=== PATIENT | male | born 1990 | race Two or more races ===

== ENCOUNTER 2024-04-12 20:34 | Emergency (ER) | payer MEDICAID, OTHER ==
[~2024-04-12] VITALS: Ht 180.3 cm; Wt 106.0 kg
[2024-04-12 21:57] VITALS: BP 120/67; PULSE 96; RESP 15; TEMP 99.2; O2SAT 99
[2024-04-13] MEDS: TETANUS-DIPTH-ACEL PERTUSSIS 0.5ML SYR Tdap IM ONE (00:43)
[2024-04-13] MEDS: LIDOCAINE 1% HCL (LOCAL ANESTH.) INJ 20ML MDV ID ONE (00:43)
[2024-04-13] MEDS: HYDROcodone-ACET 5/325MG TAB PO ONE (00:44)
[2024-04-13] MEDS: NEOMYCIN-BACITRACIN-POLYM UNITDOSE PKG TOP OINT TOP ONE (00:44)
[2024-04-13] MEDS: cefTRIAXone SOD 1,000 MG VL IM ONE (00:45)
[2024-04-13] MEDS ORDERED: HYDR-4902 PO (01:40)
[2024-04-13] MEDS ORDERED: MUPI2OIN2 EX (01:40)
[2024-04-13] MEDS ORDERED: CEPH500C PO (01:40)
== END 2024-04-13 03:49 | disposition home or self-care (01) ==
LOC: ER 20:34
DX: S01.01XA Laceration without foreign body of scalp, initial encounter (principal); V86.59XA Driver of other special all-terrain or other off-road motor vehicle injured in nontraffic accident, initial encounter; Y93.89 Activity, other specified; Y92.89 Other specified places as the place of occurrence of the external cause; Y99.8 Other external cause status
CPT/HCPCS: 12004; 70450; 71250; 74176; 96372

== ENCOUNTER 2024-04-18 10:20 | Emergency (ER) | payer MEDICAID ==
[~2024-04-18] VITALS: Ht 180.3 cm; Wt 105.8 kg
[~2024-04-18 10:20] MED LIST: CEPH500C PO; HYDR-4902 PO; MUPI2OIN2 EX
[2024-04-18 11:19] VITALS: BP 107/57; PULSE 80; RESP 18; TEMP 97.9; O2SAT 99
[2024-04-18] MEDS ORDERED: METH-1182 PO (11:36)
[2024-04-18] MEDS ORDERED: IBUP-1456 PO (11:36)
== END 2024-04-18 11:53 | disposition home or self-care (01) ==
LOC: ER 10:20
DX: S29.011D Strain of muscle and tendon of front wall of thorax, subsequent encounter (principal); Z48.00 Encounter for change or removal of nonsurgical wound dressing; V86.95XD Unspecified occupant of 3- or 4- wheeled all-terrain vehicle (ATV) injured in nontraffic accident, subsequent encounter

== ENCOUNTER 2024-04-25 12:20 | Emergency (ER) | payer MEDICAID ==
[~2024-04-25] VITALS: Ht 180.3 cm; Wt 106.7 kg
[~2024-04-25 12:20] MED LIST changes: +IBUP-1456 PO; +METH-1182 PO
[2024-04-25 13:17] VITALS: BP 127/64; PULSE 70; RESP 15; TEMP 98.7; O2SAT 99
== END 2024-04-25 13:31 | disposition home or self-care (01) ==
LOC: ER 12:20
DX: S01.81XD Laceration without foreign body of other part of head, subsequent encounter (principal); Z48.00 Encounter for change or removal of nonsurgical wound dressing; Z79.899 Other long term (current) drug therapy; X58.XXXD Exposure to other specified factors, subsequent encounter

== ENCOUNTER 2024-10-29 18:32 | Emergency (ER) | payer MEDICAID ==
[~2024-10-29] VITALS: Ht 180.3 cm; Wt 107.6 kg
--- NOTE | 2024-10-29 19:05 | ED.PDOC ---
HPI Comments 33 year old male presents to the ED with a chief complaint of chest pain onset 4 days. Patient states he began experiencing intermittent chest pain 4 days ago, radiates to his throat/neck causing shortness of breath. Patient denies any past medical history. Denies cough, congestion, fever, headache, dizziness, blurry vision. No other symptoms or modifying factors present at this time. Chief Complaint: Chest Pain Time Seen by MD: 18:44 Primary Care Provider: DENIES Reviewed Notes: Medications, Allergies Allergies: Coded Allergies: NO KNOWN ALLERGIES (Unverified , 04/18/24) Home Meds Active Scripts Aspirin (Aspir-81) 81 Mg Tab, 1 TAB PO DAILY, #30 TAB 5 Refills Prov:DARIELA CLARK MD 10/29/24 Methocarbamol (Methocarbamol) 750 Mg Tab, 750 MG PO BID, #20 TAB Prov:CHRISTINA BLEVINS 04/18/24 Ibuprofen (Ibuprofen) 800 Mg Tab, 1 TAB PO TID, #30 TAB Prov:CHRISTINA BLEVINS 04/18/24 Mupirocin (Pseudomonas Fluores (Mupirocin) 2 % Oin, 1 APPLIC EX TID, #15 GM Prov:MARY LINN LAUNDRY SUPERINTENDENT 04/13/24 Hydrocodone-Acetaminophen (Hydrocodone Bitartrate/AC 5-325 mg) 1 Tab Tab, 1 TAB PO Q6HPRN PRN, #8 TAB Needed for pain Prov:MARY LINN LAUNDRY SUPERINTENDENT 04/13/24 Cephalexin Monohydrate (Cephalexin) 500 Mg Cap, 1 CAP PO QID for 10 Days, #40 CAP Prov:MARY LINN LAUNDRY SUPERINTENDENT 04/13/24 Information Source: Patient Mode of Arrival: Ambulatory Severity: Moderate Timing: Days Duration: Intermittent Prehospital treatment: None Location: Chest (L) Radiation: Neck Quality: Pressure, Tightness Onset: At Rest Cardiac Risk Factors: None PE Risk Factors: None History of: None Associated Signs and Symptoms: SOB Past Medical History PAST MEDICAL HISTORY: Denies Surgical History: Denies all surgeries Family History Family History: Reviewed,noncontributory to illness Social History Smoker: Non-Smoker Alcohol: Denies ETOH Use Drugs: Marijuana Lives In: Home Constitutional: denies: chills, diaphoresis, fatigue, fever, malaise, sweats, weakness, others EENTM: denies: blurred vision, double vision, ear bleeding, ear discharge, ear drainage, ear pain, ear ringing, eye pain, eye redness, hearing loss, mouth pain, mouth swelling, nasal discharge, nose bleeding, nose congestion, nose pain, photophobia, tearing, throat pain, throat swelling, voice changes, others Respiratory: reports: shortness of breath; denies: cough, hemoptysis, orthopnea, SOB at rest, SOB with excertion, stridor, wheezing, others Cardiovascular: reports: chest pain; denies: dizzy spells, diaphoresis, Dyspnea on exertion, edema, irregular heart beat, left arm pain, lightheadedness, palpitations, PND, syncope, others Gastrointestinal: denies: abdomen distended, abdominal pain, blood streaked bowels, constipated, diarrhea, dysphagia, difficulty swallowing, hematemesis, melena, nausea, poor appetite, poor fluid intake, rectal bleeding, rectal pain, vomiting, others Genitourinary: denies: burning, dysuria, flank pain, frequency, hematuria, incontinence, penile discharge, penile sore, pain, testicle pain, testicle swelling, urgency, others Neurological: denies: dizziness, fainting, headache, left sided numbness, left sided weakness, numbness, paresthesia, pre-existing deficit, right sided numbness, right sided weakness, seizure, speech problems, tingling, tremors, weakness, others Musculoskeletal: denies: back pain, gout, joint pain, joint swelling, muscle pain, muscle stiffness, neck pain, others Integumetry: denies: bruises, change in color, change in hair/nails, dryness, laceration, lesions, lumps, rash, wounds, others Allergic/Immunocompromised: denies: Difficulty Healing, Frequent Infections, Hi ves, Itching, others Hematologic/Lymphatic: denies: anemia, blood clots, easy bleeding, easy bruising, swollen glands, others Endocrine: denies: excessive hunger, excessive sweating, excessive thirst, excessive urination, flushing, intolerance to cold, intolerance to heat, unexplained weight gain, unexplained weight loss, others Psychiatric: denies: anxiety, bipolar disorder, depression, hopeless, panic disorder, schizophrenia, sleepless, suicidal, others All Other Systems: Reviewed and Negative Physical Exam General Appearance: No Apparent Distress HEENT: Other (Pupils symmetric, no facial asymmetry, moist mucous membranes) Neck: Full Range of Motion, Normal Inspection Respiratory: Lungs Clear, No Accessory Muscle Use, No Respiratory Distress, Normal Breath Sounds Cardiovascular: No Edema, No JVD, Regular Rate/Rhythm Breast Exam: Deferred Gastrointestinal: Non Tender, Soft Genitalia: Deferred Pelvic: Deferred Rectal: Deferred Extremities: Normal inspection, Normal range of motion, Non-tender, No pedal edema Neurologic: Alert (Oriented x4), Normal Affect, Normal Mood, Other (Ambulatory without difficulty. No gross focal deficit.) Cerebellar Function: NOT DONE Reflexes: NOT DONE Skin: Dry, Normal Color, Warm Lymphatic: NOT DONE EKG EKG : Comments Sinus rhythm, rate 88, normal intervals, left axis deviation, LVH, Q-waves in leads 1 and aVL, no ST/T changes. Was a procedure done? Was a procedure done?: No CP Differential Dx Differential Diagnosis: Angina, Anxiety / Panic Attack, Heart Failure, PR, Pulmonary Embolus Differential Diagnosis: CHF Differential Diagnosis: Angina, Aortic dissection, Chest Wall Pain, Esophageal reflux/spasm, Gastritis, Pericarditis, Pneumonia, Pneumothorax X-Ray, Labs, Meds, VS Vital Signs Date Time Temp Pulse Resp B/P (MAP) Pulse Ox O2 Delivery O2 Flow Rate FiO2 10/29/24 18:38 88 10/29/24 18:38 98.8 94 16 127/68 (87) 100 Lab Test 10/29/24 20:45 10/29/24 19:32 10/29/24 18:48 Range/Units Troponin I High Sensitivity 36 36 35 </=54 ng/L White Blood Count 11.6 H 4.4-10.8 10^3/uL Red Blood Count 5.61 4.5-5.90 10^6/uL Hemoglobin 16.7 13.5-17.5 g/dL Hematocrit 48.8 41.0-53.0 % Mean Corpuscular Volume 87.0 80.0-100.0 fL Mean Corpuscular Hemoglobin 29.7 28.0-32.0 pg Mean Corpuscular Hemoglobin Concent 34.1 32.0-36.0 g/dL Red Cell Distribution Width 13.1 11.8-14.3 % Platelet Count 241 140-450 10^3/uL Mean Platelet Volume 8.7 6.9-10.8 fL Neutrophils (%) (Auto) 69.3 37.0-80.0 % Lymphocytes (%) (Auto) 22.5 10.0-50.0 % Monocytes (%) (Auto) 6.0 0.0-12.0 % Eosinophils (%) (Auto) 1.7 0.0-7.0 % Basophils (%) (Auto) 0.5 0.0-2.0 % Neutrophils # (Auto) 8.0 1.6-8.6 10 ^3/uL Lymphocytes # (Auto) 2.6 0.4-5.4 10 ^3/uL Monocytes # (Auto) 0.7 0-1.3 10 ^3/uL Eosinophils # (Auto) 0.2 0-0.8 10 ^3/uL Basophils # (Auto) 0.1 0-0.2 10 ^3/uL Nucleated Red Blood Cells 0.1 % Sodium Level 143 136-145 mmol/L Potassium Level 4.0 3.5-5.1 mmol/L Chloride Level 108 H 98-107 mmol/L Carbon Dioxide Level 29 20-31 mmol/L Anion Gap 6 5-15 Blood Urea Nitrogen 19 9-23 mg/dL Creatinine 1.14 0.700-1.30 mg/dL Glomerular Filtration Rate Calc 87 >90 mL/min BUN/Creatinine Ratio 16.7 10.0-20.0 Serum Glucose 94 74-106 mg/dL Calcium Level 10.1 8.7-10.4 mg/dL B-Type Natriuretic Peptide 37.90 0-100 pg/mL PROCEDURE(s): CXR1 - CHEST XRAY 1 VIEW REASON: chest pain ORDER NUMBER(s): [id number], ACCESSION NUMBER(s): [id number] CHEST RADIOGRAPH Indication: chest pain Technique: Single frontal view of the chest was obtained COMPARISON: None FINDINGS: Lines and Tubes: None Lungs: Clear Pleura: No effusion. No pneumothorax. Cardiomediastinal contours: Unremarkable Bones: Unremarkable IMPRESSION: 1. No acute disease. ATED BY: YI FRANCO MD X-Ray, Labs, Meds, VS Comment 33-year-old male with no significant past medical history complaining of chest pain Vitals unremarkable Exam unremarkable Rhythm strip independently interpreted by me: Sinus rhythm, rate 88, no ectopy. Chest x-ray unremarkable CBC, basic metabolic panel, BNP, 3 serial troponins unremarkable Patient treated with the following in the ED: Aspirin 325 mg p.o., nitroglycerin 0.4 mg sublingual with no significant change. Toradol 60 mg IM administered with improvement. On re-evaluation patient resting comfortably with stable vitals. Heart score is 2. Hospitalization was considered, however patient had rapid improvement of symptoms with treatment in the ED, and I no longer feel hospitalization is necessary. Patient now appears stable for discharge with close outpatient follow-up with his primary physician for referral to a senior instructor for further evaluation of his chest pain. Time of 1ST Reevaluation: 19:14 Reevaluation 1ST: Unchanged Patient Education/Counseling: Diagnosis, Treatment, Prognosis Family Education/Counseling: No Family Present Additional Information I reviewed the following notes from patient's past medical encounters: The following tests were ordered, and results were reviewed by me: EKG-X3, TROP -x3 I discussed treatment and results with medical personnel and: patient Departure 1 Departure Time of Disposition: 22:20 Impression: Primary Impression: Chest pain with low risk for cardiac etiology Disposition: 01 HOME / SELF CARE / HOMELESS Condition: Stable Additional Instructions: Your blood tests, including screening test for heart attack and heart failure were unremarkable. Your EKG was normal. Your chest x-ray was normal. Follow- up with your primary doctor in 1-2 days for referral to a senior instructor for further evaluation of your chest pain. e-Prescriptions Aspirin (Aspir-81) 81 Mg Tab 1 TAB PO DAILY, #30 TAB 5 Refills Prov: DARIELA CLARK MD 10/29/24 Discharged With: Relative Critical Care Note Critical Care Time?: No Stability Stability form required: No Heart Score Heart Score: Heart Score Response (Comments) Value History Moderate Suspicious 1 EKG Normal 0 Age <45 0 Risk Factors 1 or 2 risk factors 1 Troponin Normal limit 0 Total 2 I personally scribed for DARIELA CLARK MD ([email or web address]) on 10/29/24 at 19:05. Electronically submitted by Shama Urbina ([email or web address]). I personally scribed for DARIELA CLARK MD ([email or web address]) on 10/29/24 at 19:53. Electronically submitted by Shama Urbina ([email or web address]). I personally scribed for DARIELA CLARK MD ([email or web address]) on 10/29/24 at 19:56. Electronically submitted by Shama Urbina ([email or web address]). DARIELA CLARK MD Oct 29, 2024 19:05
[2024-10-29 20:31] LABS: Sodium 143 mmol/L (136-145)
[2024-10-29 20:32] LABS: Anion Gap 6 (5-15); Calcium 10.1 mg/dL (8.7-10.4); Carbon Dioxide 29 mmol/L (20-31)
[2024-10-29 20:34] LABS: Basophils # (auto) 0.1 10 ^3/uL (0-0.2); Basophils % (auto) 0.5 % (0.0-2.0); Eosinophils # (auto) 0.2 10 ^3/uL (0-0.8); Eosinophils % (auto) 1.7 % (0.0-7.0); Hematocrit 48.8 % (41.0-53.0); Hemoglobin 16.7 g/dL (13.5-17.5); Lymphocytes # (auto) 2.6 10 ^3/uL (0.4-5.4); Lymphocytes % (auto) 22.5 % (10.0-50.0); Mean Corpuscular Hemoglobin 29.7 pg (28.0-32.0); Mean Corpuscular Hgb Conc. 34.1 g/dL (32.0-36.0); Monocytes # (auto) 0.7 10 ^3/uL (0-1.3); Neutrophils % (auto) 69.3 % (37.0-80.0); Nucleated Red Blood Cells % 0.1 %; Platelet Count (auto) 241 10^3/uL (140-450); Red Blood Cells 5.61 10^6/uL (4.5-5.90); Red Cell Distribution Width 13.1 % (11.8-14.3); White Blood Cell 11.6 10^3/uL (4.4-10.8)
[2024-10-29 20:37] LABS: BUN/Creatinine Ratio 16.7 (10.0-20.0); Blood Urea Nitrogen 19 mg/dL (9-23); Glucose 94 mg/dL (74-106)
[2024-10-29 20:39] LABS: Chloride 108 mmol/L (98-107)
[2024-10-29] MEDS ORDERED: ASPI1TAB20 PO (22:22)
--- NOTE | 2024-10-29 22:35 | DVH ---
CHEST RADIOGRAPH Indication: chest pain Technique: Single frontal view of the chest was obtained COMPARISON: None FINDINGS: Lines and Tubes: None Lungs: Clear Pleura: No effusion. No pneumothorax. Cardiomediastinal contours: Unremarkable Bones: Unremarkable IMPRESSION: 1. No acute disease.
[2024-10-30] MEDS: NITROGLYCERIN 0.4 MG SL TAB SL ONE (01:28)
[2024-10-30] MEDS: KETOROLAC TROMETH 60MG/2ML VIAL IM ONE (01:28)
[2024-10-30] MEDS: ASPirin 325 MG TAB PO ONE (01:28)
[2024-10-30 01:30] VITALS: BP 145/91; PULSE 82; RESP 18; TEMP 98.1; O2SAT 98
--- NOTE | 2024-10-30 03:18 | ECG ---
[facility] Test Date: 2024-10-29 Test Time: 18:38:10 Pat Name: KELLEN TAPIA Department: ER Room: Gender: M Covered Button Maker: GP : 1990 Requested By: FELEICA BOLDEN Order Number: [id number] Reading MD: Shay Castro Measurements Intervals [place] Rate: 88 P: 43 [place]: 165 QRS: -45 QRSD: 114 T: 34 QT: 347 QTc: 420 Interpretive Statements Sinus rhythm LAD, consider left anterior fascicular block Left ventricular hypertrophy ST elevation suggests acute pericarditis Electronically Signed On 11-02-2024 15:41:40 PST by Shay Castro Please click the below link to view image of tracing.
== END 2024-10-30 01:34 | disposition home or self-care (01) ==
LOC: ER 18:32
DX: R07.89 Other chest pain (principal); F12.90 Cannabis use, unspecified, uncomplicated; Z79.899 Other long term (current) drug therapy
CPT/HCPCS: 36415; 71045; 80048; 83880; 84484; 85025; 93005; 96372; 99285; J1885